=== PATIENT | female | born 2000 | race Caucasian/White ===

== ENCOUNTER 2023-03-08 18:17 | Emergency (ER) | payer BC ==
[~2023-03-08] VITALS: Ht 170.2 cm; Wt 59.0 kg
[2023-03-08 19:05] VITALS: BP 141/87; TEMP 98.7; O2SAT 99
== END 2023-03-08 22:17 | disposition left against medical advice (07) ==
LOC: ER 18:17
DX: R07.89 Other chest pain (principal); Z53.21 Procedure and treatment not carried out due to patient leaving prior to being seen by health care provider